=== PATIENT | male | born 1935 | race Caucasian/White ===

== ENCOUNTER → 2018-04-06 | Outpatient (CLI) | payer OTHER, MEDICARE | LOC: BMCIMAGING 10:22 | PROVIDERS: ATTEND Internal Medicine | DX: M24.831 Other specific joint derangements of right wrist, not elsewhere classified (principal); M24.832 Other specific joint derangements of left wrist, not elsewhere classified ==

== ENCOUNTER → 2018-09-01 | Outpatient (CLI) | payer OTHER, MEDICARE | LOC: BMCIMAGING 16:24 ==

== ENCOUNTER → 2018-09-21 | Outpatient (CLI) | payer OTHER, MEDICARE | LOC: FIMAGING 09:36 ==